=== PATIENT | female | born 1980 | race African-American/Black ===

== ENCOUNTER 2018-09-14 22:06 | Emergency (ER) | payer OTHER ==
[~2018-09-14] VITALS: Ht 170.2 cm; Wt 74.8 kg
[~2018-09-14 22:06] MED LIST: IBUP-1096 PO
[2018-09-14] MEDS ORDERED: NAPROXEN 500 MG TABLET (22:19)
--- NOTE | 2018-09-14 23:30 | NUR ---
Patient ambulated with stable gait. AAxO x 4. Speech is clear, able to speak in complete sentences. No neuro deficits. Respiratory even and unlabored. No SOB, no cough. No cardiovascular distress, all pulses palpable. No GI/ distress. Patient came in with c/o pain in BLE and lower back x1 day. Pain is worst in BLE 04/02.Patient previously seen at [facility] earlier today and was discharged with Flexeril. Patient reported taking flexeril and felt like she was "blacking out". Fall precautions implemented per protocol. Parents at bedside. Side rails up x2, bed at lowest position. Call light within reach.
[2018-09-14] MEDS ORDERED: ONDANSETRON 4 MG/2 ML VIAL ONE (23:44)
[2018-09-14] MEDS ORDERED: ONDANSETRON 4 MG/2 ML VIAL IV ONE (23:45)
[2018-09-15] MEDS ORDERED: MORPHINE SULFATE 2 MG/1 ML DISP.SYRIN IV ONE
[2018-09-15] MEDS ORDERED: MORPHINE SULFATE 2 MG/1 ML DISP.SYRIN ONE ×2 (00:11→02:05)
--- NOTE | 2018-09-15 00:40 | NUR ---
Patient back in room from CT. Respiratory even and unlabored. O2 saturation at 99%. NAD
[2018-09-15 00:42] LABS: *URINE HCG, QUAL NEGATIVE (NEGATIVE)
[2018-09-15 01:07] LABS: BASOPHILS % (AUTO) 0.2 % (0.0-2.0); HEMATOCRIT 36.9 % (31.2-41.9); HEMOGLOBIN 11.9 g/dL (10.9-14.3); LYMPHOCYTES % (AUTO) 19.5 % (20.5-51.5); MEAN CORPUSCULAR HEMOGLOBIN 28.1 uug (24.7-32.8); MEAN CORPUSCULAR HGB CONC 32 g/dL (32.3-35.6); MEAN CORPUSCULAR VOLUME 87.2 fL (75.5-95.3); MONOCYTES # (AUTO) 0.1 K/uL (2.0-10.0); NEUTROPHILS # (AUTO) 3.8 K/uL (1.8-8.9); NEUTROPHILS % (AUTO) 78.3 % (38.5-71.5); PLATELET COUNT (AUTO) 221 K/uL (179-408); RED BLOOD CELL COUNT(AUTO) 4.23 MIL/uL (3.63-4.92); WHITE BLOOD COUNT (AUTO) 4.9 K/uL (3.8-11.8)
[2018-09-15 01:13] LABS: CREATININE 0.7 mg/dL (0.6-1.3); POTASSIUM 3.8 mmol/L (3.5-5.1)
[2018-09-15] MEDS ORDERED: MORPHINE SULFATE 4 MG/1 ML DISP.SYRIN IV ONE (02:00)
[2018-09-15] MEDS ORDERED: MORPHINE SULFATE 4 MG/1 ML DISP.SYRIN ONE (02:04)
--- NOTE | 2018-09-15 02:20 | NUR ---
Patient discharged to home in stable conditon. Written and verbal after care instructions given. Patient verbalizes understanding of instructions. Patient ambulated with stable gait accompanied by parents. Instructed patient to not drive, patient aware.
[2018-09-15 02:24] VITALS: BP 132/75
== END 2018-09-15 02:22 | disposition home or self-care (01) ==
LOC: ER 22:07
DX: M54.5 Low back pain (principal); R51 Headache; R55 Syncope and collapse; Z79.1 Long term (current) use of non-steroidal anti-inflammatories (NSAID)
CPT/HCPCS: 36415; 70450; 80048; 84703; 85025; 93005; 96374; 96375; 96376; 99284; J2270 ×3; J2405; A4663

== ENCOUNTER 2018-09-25 21:37 | Emergency (ER) | payer OTHER ==
[~2018-09-25] VITALS: Ht 170.2 cm; Wt 74.8 kg
[~2018-09-25 21:37] MED LIST changes: +NAPROXEN 500 MG TABLET
--- NOTE | 2018-09-25 22:04 | NUR ---
Pt ambulated to ER with c/o lower back pain radiating to bilateral lower extremities x 1.5 years & headache that has been worse for the past month. No acute neuro deficits. Speech clear. Facial smile symmetric. No ataxia. Hand manager of data strong. Able to move all extremities. No acute distress noted.
[2018-09-25] MEDS ORDERED: HYDROCODONE/APAP 5-325MG TABLET ONE (22:39)
[2018-09-25] MEDS ORDERED: HYDROCODONE/APAP 5-325MG TABLET PO ONE (22:45)
--- NOTE | 2018-09-25 23:00 | NUR ---
Patient discharged to home in stable conditon. Written and verbal after care instructions given. Patient verbalizes understanding of instructions. Pt ambulated out of ER in steady gait w friend who will drive home. All belongings with pt. VSS. NAD noted.
[2018-09-25 23:40] VITALS: BP 132/71
== END 2018-09-25 23:40 | disposition home or self-care (01) ==
LOC: ER 21:37
DX: R51 Headache (principal); M79.604 Pain in right leg; M79.605 Pain in left leg; Z79.1 Long term (current) use of non-steroidal anti-inflammatories (NSAID)
CPT/HCPCS: A4663

== ENCOUNTER 2018-11-14 19:49 | Emergency (ER) | payer OTHER ==
[~2018-11-14] VITALS: Ht 172.7 cm; Wt 72.6 kg
[2018-11-14] MEDS ORDERED: GUAI600T53 PO (20:18)
[2018-11-14] MEDS ORDERED: [UNRECOGNIZED DRUG - REMARK] (20:18)
--- NOTE | 2018-11-14 20:44 | NUR ---
Dr. Liu at bedside.
[2018-11-14] MEDS ORDERED: IBUPROFEN 800 MG TABLET ONE (20:57)
[2018-11-14] MEDS ORDERED: IBUPROFEN 800 MG TABLET PO ONE (21:00)
--- NOTE | 2018-11-14 21:34 | NUR ---
Patient discharged to home in stable conditon. Written and verbal after care instructions given. Patient verbalizes understanding of instructions. Pt ambulated out of ER with steady gait, no acute signs of distress, VSS, all belongings taken.
[2018-11-14 21:37] VITALS: BP 137/84
== END 2018-11-14 21:38 | disposition home or self-care (01) ==
LOC: ER 19:49
DX: J02.0 Streptococcal pharyngitis (principal); Z79.899 Other long term (current) drug therapy; Z79.1 Long term (current) use of non-steroidal anti-inflammatories (NSAID)
CPT/HCPCS: 36415; 86403; 87400; A4663

== ENCOUNTER 2020-03-27 12:41 | Emergency (ER) | payer BC, OTHER ==
[~2020-03-27] VITALS: Ht 172.7 cm; Wt 74.8 kg
[~2020-03-27 12:41] MED LIST changes: +GUAI600T53 PO; -NAPROXEN 500 MG TABLET; +[UNRECOGNIZED DRUG - REMARK]
[2020-03-27] MEDS ORDERED: IV NORMAL SALINE 1000 ML BAG IV ONE (13:15)
--- NOTE | 2020-03-27 13:34 | NUR ---
PT IS IN ROOM #3. DR ARREAGA EVALUATED THE PT.
[2020-03-27] MEDS ORDERED: ONDANSETRON 4 MG/2 ML VIAL ONE (13:41)
[2020-03-27] MEDS ORDERED: KETOROLAC TROMETHAMINE 30 MG INJ ONE (13:42)
[2020-03-27] MEDS ORDERED: KETOROLAC TROMETHAMINE 30 MG INJ IVP ONE (13:45)
[2020-03-27] MEDS ORDERED: ONDANSETRON 4 MG/2 ML VIAL IV ONE (13:45)
--- NOTE | 2020-03-27 14:23 | NUR ---
DCD instructions and prescription given to pt. who verbalized understanding.
--- NOTE | 2020-03-27 14:49 | NUR ---
Patient left room AAOX4 vitals of 128/71 hr 72, saturation of 95% on RA. Steady gait and as verbalized by her pain well controlled.
== END 2020-03-27 14:53 | disposition home or self-care (01) ==
LOC: ER 12:41
DX: J02.0 Streptococcal pharyngitis (principal); B95.0 Streptococcus, group A, as the cause of diseases classified elsewhere; Z20.828 Contact with and (suspected) exposure to other viral communicable diseases
CPT/HCPCS: 36415; 71045; 86403; 96374; 96375; 99284; J1885; J2405; U0003; A4663; J7030